=== PATIENT | male | born 1935 | race Caucasian/White ===

== ENCOUNTER 2017-03-02 16:22 | Observation (INO) | payer MEDICARE, BC ==
--- NOTE | ~2017-03-02 | EKG ---
PATIENT: MICHAEL FISHER UNIT #: [id number] Ventricular Rate: 60 BPM Atrial Rate: 60 BPM P-R Interval: 246 ms QRS Duration: 128 ms Q-T Interval: 448 ms QTC Calculation(Bezet): 448 ms P [place]: 20 degrees Calculated R [place]: -69 degrees Calculated T [place]: -54 degrees Diagnosis Line: Sinus rhythm with 1st degree A-V block Diagnosis Line: Left axis deviation Diagnosis Line: Right bundle branch block Diagnosis Line: Inferior infarct (cited on or before 02-MAR-2017) Diagnosis Line: Nonspecific T wave abnormality Diagnosis Line: Abnormal ECG Diagnosis Line: When compared with ECG of 02-MAR-2017 18:13, Diagnosis Line: (unconfirmed) Diagnosis Line: Nonspecific T wave abnormality now evident in Diagnosis Line: Anterior leads Diagnosis Line: Confirmed by KELSEY DWYER MD ([id number]) on Diagnosis Line: 03/05/2017 7:07:51 AM INTERPRETING MD: EDD
--- NOTE | ~2017-03-02 | DS ---
Unit #: [id number] #: [id number] Patient: MICHAEL FISHER [id number] [facility] [address], [place] [address] [id number] MR#: [id number] NAME: MICHAEL FISHER ROOM: 555 Age: 82 Sex: M Admission Date: 03/02/2017 : 1935 Discharge Date: 03/03/2017 Attending Physician: Bobo Thurman M.D. Primary Care Physician: Alex Dozier M.D. DISCHARGE SUMMARY DISCHARGE DIAGNOSES 1. Unstable angina. 2. Status post cardiac catheterization 03/03/[address] Thurman at [facility] that revealed the following results. a. Left main normal. b. Left anterior descending artery heavily calcified with mid-vessel stenosis of 30%. c. Circumflex artery nondominant vessel heavy calcified at the ostium, with 60% stenosis. d. Right coronary artery large vessel, dominant, with mid-vessel heavy calcified with 99% stenosis. e. Ejection fraction of 55%. 3. Two-dimensional echocardiogram 02/28/2017 from [facility] in [place], [place], which showed inferior wall and posterior wall akinetic. Ejection fraction of 40%-45%. Left atrium mildly dilated. There is mild aortic regurgitation, trace mitral regurgitation and mild tricuspid regurgitation. Right ventricular systolic pressure 35 mmHg. Impaired left ventricular relaxation. 4. Elevated troponin, peaked at 0.47 on 02/28/2017. 5. Chronic lymphocytic leukemia. 6. Chronic anemia. 7. Former smoker. DISCHARGE MEDICATIONS 1. Acetaminophen 500 mg q.4 h. p.r.n. 2. Nystatin 5 ml q.i.d. 3. MiraLAX 119 g daily. 4. Lipitor 80 mg at nighttime. 5. Multivitamin 1 tablet daily. 6. Probiotic 1 tablet daily. 7. Vitamin B12 500 mg daily. 8. Folic acid 1 mg daily. 9. Nitroglycerin 0.4 mg sublingual q.5 minutes times 3 p.r.n. chest pain. HOSPITAL COURSE This is an 82-year-old white male who was recently discharged from [facility] in [place], [place] while he was visiting for a convention. He had what was felt to be a near syncopal episode and went to the emergency room. He was found to have an elevated troponin that peaked at 0.47. According to the records, he had electrocardiogram that showed right bundle branch block, but no acute ischemic changes. Echocardiogram showed no significant valvular heart disease with mild left ventricular systolic dysfunction with ejection fraction of 40%-45%. The patient was offered to Unit #: [id number] #: [id number] Patient: MICHAEL FISHER have a cardiac catheterization, but he declined and came home. He went to see his primary care physician's office and was also seen by cardiology. He was subsequently admitted for cardiac catheterization. After risks and benefits were explained, he and his agreed. The following day he underwent cardiac catheterization which found him to have significant stenosis of 99% to the large dominant right coronary artery. The vessel could not be treated PCI stenting because of heavy calcification. He would need rotational atherectomy followed by stenting. This will be arranged to be done at [facility] on 03/06/2017. He was initially started on a beta kleber, but it was discontinued because he had bradycardia. His troponin during this stay was 0.32 at its peak. Today troponin is down to 0.24. TSH is normal at 2.63. His right groin is healing well, without hematoma. He has palpable distal pulses. No loss of sensation. He is stable for discharge today. PHYSICAL EXAMINATION VITALS: Blood pressure 145/39, heart rate 57, temperature 97.6. CHEST: Clear to auscultation. HEART: S1 and S2. Regular rate and rhythm. ABDOMEN: Soft and tender with bowel sounds present. EXTREMITIES: Without leg edema. Right groin without hematoma, bruising, 4+ pulse. DIAGNOSTIC DATA LABORATORY: Glucose 84, BUN 15, creatinine 0.9, sodium 137, potassium 4.5. CK total 92. MB 5.8. MB index 6.3. Troponin 0.32 to 0.24. Cholesterol 90, triglycerides 84, LDL 51, HDL 22, TSH 2.63. White blood cell count 2.4, hemoglobin 10.0, hematocrit 30.4, platelets 143. CARDIOVASCULAR: Electrocardiogram shows sinus bradycardia with a first degree AV block, with a rate of 60 beats per minute. There are Q waves noted in the inferior leads with questionable old inferior infarct. Right bundle branch block. DISCHARGE INSTRUCTIONS 1. The patient will be discharged home today. 2. He will follow up on 03/06/2017 with PCI and atherectomy to the right coronary artery 90% lesion per Dr. Thurman at [facility]. Dr. Thurman's office will call with the arrangements. 3. No beta kleber because of bradycardia. 4. The patient will have a Bio-V XT patch placed in two weeks for further monitoring of syncope to rule out significant bradycardia arrhythmias. He may require a permanent pacemaker at a later date. 5. Continue home medications as previously, with the exception of Lipitor 80 mg and nitroglycerin. Dictated by... Bryan Cadet A.P.R.N. for Joyce Pretty M.D. AEP/gz TD: 03/05/2017 11:23 JOB #: [id number] CC: [facility] [place] [facility] Alex Dozier M.D. Unit #: [id number] #: [id number] Patient: MICHAEL FISHER DISCHARGE SUMMARY Page 1 of 1 X Bryan Cadet APRN X DISCHARGE SUMMARY
--- NOTE | ~2017-03-02 | HP ---
Unit #: [id number] #: [id number] Patient: MICHAEL FISHER [id number] [facility]. [place] [id number] [facility]. [place], [place] [address] [id number] I MR#: [id number] NAME: MICHAEL FISHER ROOM: 555 Age: 82 Sex: M Admission Date: 03/02/2017 : 1935 Attending Physician: Bobo Thurman M.D. Primary Care Physician: Alex Dozier M.D. HISTORY AND PHYSICAL HISTORY OF PRESENT ILLNESS This is an 82-year-old white male who was recently discharged from [facility] in [place], [place], a couple of days ago where he was admitted for a syncopal episode. The patient was at a convention with his and while there, he had an episode where he "lost control of his body." He denied any loss of consciousness. He was admitted to the hospital where they felt he had a vasovagal syncopal episode. He apparently was traveling all day and did not have much to eat or drink. They felt that he was dehydrated. Cardiac enzymes were elevated, which according to Dr. Dozier, troponin was 0.44. He also had an eight beat run of ventricular tachycardia. He was advised to undergo cardiac catheterization, but the patient declined. He went to see Dr. Dozier today, and he felt that the patient should be admitted to the hospital for cardiac catheterization. According to the patient, he has had several episodes of intermittent substernal chest pain that is nonradiating to his neck, arm, or jaw over the past one month. The chest pain has awakened at night that he referred to as indigestion. The pain was so severe at times that he got out of bed and walked around until the pain was relieved. He denies any associated shortness of breath, palpitations, dizziness, or nausea. He also reports a similar episode of syncope a few months ago. He has had a stress test in the past but no cardiac catheterization. He denies a history of hypertension, hyperlipidemia, or diabetes. He has a remove history of nicotine abuse in the past. He states he is reasonably active and plays golf without any symptoms. PAST MEDICAL HISTORY 1. Chronic lymphocytic leukemia. 2. Gastroesophageal reflux disease. 3. Chronic anemia. 4. Former smoker. PAST SURGICAL HISTORY 1. Cataract extraction. 2. Hip replacement. 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 He quit smoking 45 years ago. He denies any illicit drug or alcohol use. FAMILY HISTORY Negative for coronary artery disease. Unit #: [id number] #: [id number] Patient: MICHAEL FISHER. HOME MEDICATIONS 1. Vitamin B12 at 500 mcg daily. 2. Folic acid 1 mg daily. 3. Omeprazole 20 mg daily. 4. MiraLax 17 g daily. 5. Aspirin 81 mg daily. 6. Metoprolol 12.5 mg at bedtime. 7. Atorvastatin 40 mg daily. 8. Epogen intravenously p.r.n. REVIEW OF SYSTEMS CONSTITUTIONAL: Negative for fever or chills. Has recent fatigue and weakness. HEENT: No headache, hearing or vision changes, or difficulty with swallowing. Denies dizziness. CARDIOVASCULAR: Has chest pain as described in the History of Present Illness. Denies palpitations. No paroxysmal nocturnal dyspnea or orthopnea. No syncope but reports near syncope. RESPIRATORY: Negative for dyspnea, cough, or hemoptysis. GASTROINTESTINAL: No abdominal pain, nausea, or vomiting. No constipation or melena. EXTREMITIES: Negative for lower extremity edema. PHYSICAL EXAMINATION VITAL SIGNS: Blood pressure 110/56 and heart rate 88. GENERAL: This is a tall, thin, elderly white male who is in no acute respiratory distress. NEUROLOGICAL: He is awake, alert, and oriented. There are no focal weaknesses. NECK: Trachea is midline. No thyromegaly or lymphadenopathy. No jugular venous distention. HEART: S1 and S2 heart sounds are normal. No murmurs, rubs, or clicks. Regular rate and rhythm. CLEAR: Clear without rales, rhonchi, or wheezing. ABDOMEN: Soft and nontender with bowel sounds present. EXTREMITIES: Without leg edema. SKIN: Warm and dry. Noted for some bruising to bilateral arms. IMPRESSION 1. Recent near syncopal episode. 2. Nonsustained ventricular tachycardia of eight beats. 3. Elevated troponin peak at 0.44. 4. History of chronic lymphocytic leukemia. 5. Chronic anemia. PLAN 1. Because of the patient's near syncopal episode that may be secondary to arrhythmia and elevated troponin, recommend cardiac catheterization to evaluate his coronary anatomy. This has been explained in depth with the patient and , the risks and benefits of bleeding, myocardial infarction, CVA, renovascular complications, and . They are agreeable. 2. Repeat EKG and troponin. 3. Will obtain records from [facility] in [place]. 4. Monitor for anemia. Unit #: [id number] #: [id number] Patient: MICHAEL FISHER 5. Lipid profile will be obtained. 6. Further recommendations pending the results of the cardiac catheterization. 1. Dictated by Bryan Cadet A.P.R.N. for Briseyda Duke/alem TD: 03/02/2017 21:02 JOB #: [id number] HISTORY AND PHYSICAL Page 1 of 1 X Bryan Cadet APRN X HISTORY AND PHYSICAL
--- NOTE | ~2017-03-02 | EKG ---
PATIENT: MICHAEL FISHER UNIT #: [id number] Ventricular Rate: 75 BPM Atrial Rate: 75 BPM P-R Interval: 228 ms QRS Duration: 124 ms Q-T Interval: 410 ms QTC Calculation(Bezet): 457 ms P [place]: 38 degrees Calculated R [place]: -70 degrees Calculated T [place]: -34 degrees Diagnosis Line: Sinus rhythm with 1st degree A-V block Diagnosis Line: Left axis deviation Diagnosis Line: Right bundle branch block Diagnosis Line: Inferior infarct , age undetermined Diagnosis Line: Abnormal ECG Diagnosis Line: No previous ECGs available Diagnosis Line: Confirmed by KERWIN BEAULIEU MD ([id number]) on Diagnosis Line: 03/03/2017 5:07:20 PM INTERPRETING MD: BRITTNEE BOATENG
[~2017-03-02 16:22] MED LIST: ACETAMINOPHEN; ACETAMINOPHEN500 M2 PO; ADVIL200 M3 PO; CYTOXIN; FOLIC ACID; MIRALAX119 GM; MULTI-VITAMIN1 EAC1 PO; NYSTATIN5 ML PO; PROBIOTIC1 EAC3 PO; VITAMIN B122500 MCG
[2017-03-02] MEDS ORDERED: B-12500 MC1 PO (21:14)
[2017-03-02 23:15] LABS: %MB 6.3 % (0.0-4.0)
[2017-03-03 06:50] LABS: HEMATOCRIT 30.4 % (38.0-50.0); MEAN CELL VOLUME 107.7 FL (83-96); MEAN CORPUSCULAR HEMOGLOBIN 35.4 PG (28-34); MEAN CORPUSCULAR HGB CONC 32.9 g/dL (30-36); MEAN PLATELET VOLUME 6.8 FL (6.5-11.5); RED BLOOD COUNT 2.82 X10e (3.90-5.60); RED CELL DISTRIBUTION WIDTH 14.8 % (11.0-15.5); WHITE BLOOD COUNT 2.4 X10e3 (4.0-10.5)
[2017-03-03 06:56] LABS: PARTIAL THROMBOPLASTIN TIME 31.7 SECONDS (23.5-31.3); PROTHROMBIN TIME (PATIENT) 11.2 SECONDS (10.0-11.7)
[2017-03-03 07:13] LABS: BUN/CREATININE RATIO 16.66; CALCIUM SERUM 8.7 mg/dL (8.4-10.2); CREATININE SERUM 0.9 mg/dL (0.6-1.4); GLOM FILT RATE Estimated 78.2 mL/min (>60); POTASSIUM 4.5 mmol/L (3.5-5.1)
[2017-03-03 07:30] LABS: %MB 6.3 % (0.0-4.0); MB 5.8 ng/ml
[2017-03-03] MEDS ORDERED: LIPITOR80 MG PO (12:13)
[2017-03-03] MEDS ORDERED: NITROSTAT0.4 MG SL (12:14)
== END 2017-03-03 18:40 | disposition home or self-care (01) ==
LOC: C5B 16:22
PROVIDERS: Internal Medicine Cardiovascular Disease; Nurse Practitioner
DX: I25.110 Atherosclerotic heart disease of native coronary artery with unstable angina pectoris (principal); I08.2 Rheumatic disorders of both aortic and tricuspid valves; C91.Z0 Other lymphoid leukemia not having achieved remission; D64.9 Anemia, unspecified; I47.2 Ventricular tachycardia; R79.89 Other specified abnormal findings of blood chemistry; Z87.891 Personal history of nicotine dependence
CPT/HCPCS: 80048; 80061; 82550; 82553; 84443; 84484; 85027; 85610; 85730; 93005; C1769; G0378; J1644; J2250; J3010